=== PATIENT | male | born 1995 | race Caucasian/White ===

== ENCOUNTER 2021-12-04 13:40 | Emergency (ER) | payer OTHER ==
[2021-12-04 13:52] VITALS: BP 117/73; PULSE 85; RESP 19; BMI 30.5
== END 2021-12-04 16:52 | disposition home or self-care (01) ==
LOC: JERFT 13:40 → JER 13:40 → JERFT 16:52
DX: S63.642A Sprain of metacarpophalangeal joint of left thumb, initial encounter (principal); Y04.8XXA Assault by other bodily force, initial encounter
CPT/HCPCS: 73130-TC-LT-FY; 99283-25